=== PATIENT | female | born 1980 | race Caucasian/White ===

== ENCOUNTER 2018-02-24 12:51 | Emergency (ER) | payer OTHER ==
[~2018-02-24] VITALS: Ht 157.5 cm; Wt 81.6 kg
[~2018-02-24 12:51] MED LIST: CITA20TA9 PO
[2018-02-24 13:02] VITALS: BP 126/78
--- NOTE | 2018-02-24 13:12 | PHYS DOC ---
Past History Past Medical History: Anxiety, Depression Past Surgical History: No Surgical History Alcohol Use: Rarely Drug Use: None Adult General Chief Complaint Chief Complaint: LACERATION/AVULSION HPI HPI 37 showed female presents with left hand pain. The patient was opening a total yesterday with scissors from the scissors slipped and stabbed into the left palm. She immediately had bleeding. She washed off the wound and applied pressure. She was able to stop bleeding. She comes in today for further evaluation. There is no further bleeding. There is a small skin flap hanging off of the area. It is about a 0.5 cm laceration. She denies fever or chills. It is painful with palpation, Review of Systems Review of Systems Constitutional: Denies fever or chills [] Eyes: Denies change in visual acuity, redness, or eye pain [] HENT: Denies nasal congestion or sore throat [] Respiratory: Denies cough or shortness of breath [] Cardiovascular: No additional information not addressed in HPI [] GI: Denies abdominal pain, nausea, vomiting, bloody stools or diarrhea [] : Denies dysuria or hematuria [] Musculoskeletal: Hand laceration left hand[] Integument: Denies rash or skin lesions [] Neurologic: Denies headache, focal weakness or sensory changes [] Endocrine: Denies polyuria or polydipsia [] All other systems were reviewed and found to be within normal limits, except as documented in this note. Allergies Allergies Allergies Coded Allergies Type Severity Reaction Last Updated Verified No Known Drug Allergies 11/29/14 No Physical Exam Physical Exam Constitutional: Well developed, well nourished, no acute distress, non-toxic appearance. [] HENT: Normocephalic, atraumatic, bilateral external ears normal, oropharynx moist, no oral exudates, nose normal. [] Eyes: PERRLA, EOMI, conjunctiva normal, no discharge. [] Neck: Normal range of motion, no tenderness, supple, no stridor. [] Cardiovascular:Heart rate regular rhythm, no murmur [] Lungs & Thorax: Bilateral breath sounds clear to auscultation [] Abdomen: Bowel sounds normal, soft, no tenderness, no masses, no pulsatile masses. [] Skin: Warm, dry, no erythema, no rash. [] Back: No tenderness, no CVA tenderness. [] Extremities: No no cyanosis, no clubbing, ROM intact, no edema. Small, 0.5 cm laceration in the left thenar eminence. Bleeding is controlled.[] Neurologic: Alert and oriented X 3, normal motor function, normal sensory function, no focal deficits noted. [] Psychologic: Affect normal, judgement normal, mood normal. [] Current Patient Data Vital Signs Vital Signs Date Time Temp Pulse Resp B/P (MAP) Pulse Ox O2 Delivery O2 Flow Rate FiO2 02/24/18 13:02 98.1 69 18 98 Room Air EKG EKG [] Radiology/Procedures Radiology/Procedures [] Course & Med Decision Making Course & Med Decision Making Pertinent Labs and Imaging studies reviewed. (See chart for details) The laceration does not require stitches or a skin adhesive to close. It appears fairly shallow. Patient's tetanus is up-to-date. Advised that she keep it clean and covered, no further care. If she felt symptoms of infection she will return for further care. [] Dragon Disclaimer Dragon Disclaimer This electronic medical record was generated, in whole or in part, using a voice recognition dictation system. Departure Departure: Referrals: SHAYNA HOFFMAN MD (PCP) JOCELINE PHELPS DO February 24, 2018 13:12
== END 2018-02-24 13:20 | disposition home or self-care (01) ==
LOC: ER 12:51
DX: S61.412A Laceration without foreign body of left hand, initial encounter (principal); W26.8XXA Contact with other sharp object(s), not elsewhere classified, initial encounter; Y93.89 Activity, other specified; Y99.8 Other external cause status; Y92.89 Other specified places as the place of occurrence of the external cause
CPT/HCPCS: 99283

== ENCOUNTER 2018-06-18 06:52 | Emergency (ER) | payer OTHER ==
[~2018-06-18] VITALS: Ht 160 cm; Wt 81.6 kg
[2018-06-18] MEDS ORDERED: KETOROLAC 60 MG/2 ML VIAL. IM ONE (07:15)
[2018-06-18] MEDS ORDERED: AMOX1TAB61 PO (07:23)
[2018-06-18] MEDS ORDERED: IBUP800T19 PO (07:23)
--- NOTE | 2018-06-18 07:24 | PHYS DOC ---
Past History Past Medical History: Anxiety, Depression Past Surgical History: No Surgical History Smoking: Non-smoker Alcohol Use: Rarely Drug Use: None Adult General Chief Complaint Chief Complaint: EARACHE/EAR PAIN [facility] HPI Patient is a 38 year old female who presents with complaining of right ear. Patient states she has had history of seasonal allergy and taking Zyrtec and Sudafed. Patient states she woke up 3 AM because of right ear pain as a constant and pressure pain and rated her pain 7/10. Patient denies fever and chills, nausea and vomiting, sick contact, history of frequent ear infection. Patient denies . Review of Systems Review of Systems Constitutional: Denies fever or chills [] Eyes: Denies change in visual acuity, redness, or eye pain [] HENT: Reports nasal congestion and ear pain] Respiratory: Denies cough or shortness of breath [] Cardiovascular: No additional information not addressed in HPI [] GI: Denies abdominal pain, nausea, vomiting, bloody stools or diarrhea [] : Denies dysuria or hematuria [] Musculoskeletal: Denies back pain or joint pain [] Integument: Denies rash or skin lesions [] Neurologic: Denies headache, focal weakness or sensory changes [] Endocrine: Denies polyuria or polydipsia [] All other systems were reviewed and found to be within normal limits, except as documented in this note. Allergies Allergies Allergies Coded Allergies Type Severity Reaction Last Updated Verified No Known Drug Allergies 11/29/14 No Physical Exam Physical Exam Constitutional: Well developed, well nourished, mild distress, non-toxic appearance. [] HENT: Normocephalic, atraumatic, right tympanic membrane erythema and edema and tenderness without perforation, pharyngeal erythema, oropharynx moist, no oral exudates, nasal congestion bilaterally. Eyes: PERRLA, EOMI, conjunctiva normal, no discharge. [] Neck: Normal range of motion, no tenderness, supple, no stridor. [] Cardiovascular:Heart rate regular rhythm, no murmur [] Lungs & Thorax: Bilateral breath sounds clear to auscultation [] Neurologic: Alert and oriented X 3, normal motor function, normal sensory function, no focal deficits noted. [] Psychologic: Affect normal, judgement normal, mood normal. [] EKG EKG [] Radiology/Procedures Radiology/Procedures [] Course & Med Decision Making Course & Med Decision Making Evaluation of patient in ER showed 38-year-old female patient with history of seasonal allergy complaining of right ear pain since this morning. Patient had right tympanic membrane erythema and edema. Patient had 1 mL of Marcaine 0.5% flush in right ear and felt better. Plan discharge patient home with diagnose of right otitis media with prescription of Augmentin and ibuprofen and instruction to continue Zyrtec and Sudafed. Dragon Disclaimer Dragon Disclaimer This electronic medical record was generated, in whole or in part, using a voice recognition dictation system. Departure Departure: Impression: Primary Impression: Acute right otitis media Additional Impression: Seasonal allergies Disposition: HOME, SELF-CARE (@7:30) Condition: IMPROVED Referrals: SHAYNA HOFFMAN MD (PCP) Patient Instructions: Otitis Media, Adult Additional Instructions: Drink plenty of liquids Follow-up with your primary care physician in 3-5 days Return to ER if not getting better Scripts Ibuprofen (IBUPROFEN) 800 Mg Tablet 800 MG PO TID PRN for PAIN, #20 Prov: YINKA ARIZA MD 06/18/18 Amoxicillin/Potassium Clav (AUGMENTIN 875-125 TABLET) 1 Each Tablet 1 TAB PO BID, #20 TAB Prov: YINKA ARIZA MD 06/18/18 Problem Qualifiers YINKA ARIZA MD Jun 18, 2018 07:24
[2018-06-18 07:31] VITALS: BP 119/79
== END 2018-06-18 07:45 | disposition home or self-care (01) ==
LOC: ER 06:52
DX: H66.91 Otitis media, unspecified, right ear (principal); J30.2 Other seasonal allergic rhinitis; F41.9 Anxiety disorder, unspecified; F32.9 Major depressive disorder, single episode, unspecified
CPT/HCPCS: 96372; 99283; J1885

== ENCOUNTER → 2019-09-13 | Outpatient (CLI) | payer OTHER ==
[~2019-09-13] MED LIST changes: +AMOX1TAB61 PO; +IBUP800T19 PO
--- NOTE | 2019-09-13 15:09 | RAD ---
DATE: September 13, 2019 EXAM: DIGITAL DIAGNOSTIC BILATERAL, BREAST RIGHT SONOGRAPHY HISTORY: Right breast lump discovered by patient's physician COMPARISON: None-this is a baseline study. This study was interpreted with the benefit of Computerized Aided Detection (CAD). BILATERAL 2-D DIAGNOSTIC MAMMOGRAPHY: 2-D digital mammographic views of both breasts were performed in the CC and MLO projections. Additional focal 2-D compression views of the right breast were performed in the CC and 90 degrees projections in the area of the palpable lump as indicated by the patient. FINDINGS: Breast Density: HETERO The breast parenchyma is heterogenously dense, which could reduce sensitivity of mammography. Breast parenchyma level C.. There are no dominant suspicious masses, suspicious microcalcifications or evidence of architectural distortion. RIGHT BREAST SONOGRAPHY: High-resolution sonography of the palpable lump as indicated by the patient within the upper-outer quadrant of the right breast was performed. No focal sonographic abnormality is evident. IMPRESSION: No mammographic indicators for malignancy. No focal mammographic or sonographic abnormality is seen within the right breast to correspond to the area of palpable lump as indicated by the patient. BI-RADS CATEGORY: 1 NEGATIVE RECOMMENDED FOLLOW-UP: 12M 12 MONTH FOLLOW-UP PQRS compliance statement: Patient information was entered into a reminder system with a target due date September 14, 2020 for the next mammogram. Mammography is a sensitive method for finding small breast cancers, but it does not detect them all and is not a substitute for careful clinical examination. A negative mammogram does not negate a clinically suspicious finding and should not result in delay in biopsying a clinically suspicious abnormality. "Our facility is accredited by the [employer] Mammography [employer]." The patient's breast density may affect the ability of mammography to detect breast cancer. There are 4 categories of breast density, A, B, C and D. Breast density A means that most of the breast tissue is replaced with adipose tissue and therefore is not dense. Breast density B means that the breast tissue is mildly dense and scattered. Breast density C means that the breast tissue is heterogeneously dense. Breast density D means that the breast tissue is very dense. Breast densities especially C and D may decrease the sensitivity of mammography to detect breast cancer. Therefore, the patient may benefit from 3-D breast mammography (3D breast tomography) as a part of their screening mammogram. Insurance may or may not pay for this additional imaging. The patient's breast density based on today's mammogram is category C.
== END | disposition home or self-care (01) ==
LOC: MAMMO 13:58
PROVIDERS: ATTEND Nurse Practitioner Family
DX: N63.11 Unspecified lump in the right breast, upper outer quadrant (principal)
CPT/HCPCS: 76641; 77066

== ENCOUNTER → 2021-07-11 | Outpatient (CLI) | payer OTHER ==
--- NOTE | 2021-07-15 13:17 | RAD ---
Bilateral digital screening mammograms: Reason for examination: Routine screening. Comparison is made to previous study dated 09/13/2019. Bilateral mammograms in CC and oblique projections were obtained with 2-D imaging. Interpretation was made with the benefit of CAD. Findings: Breast density: Category D. The breasts are extremely dense which lowers sensitivity of mammography. There are no suspicious masses, malignant appearing calcifications or architectural distortion. Impression: No evidence of malignancy. ASSESSMENT: BI-RADS 1. Recommendations: Routine screening mammograms. In the future, 3-D mammography would be helpful in thi s patient with dense breasts. This patient's information has been entered into a reminder system for the patient to be notified wit h the results of her examination and a target date for the next mammogram. Your patient's mammogram demonstrates that she has dense breast tissue (breast density category C or D), which could hide abnormalities, and if she has other risk factors for breast cancer that have bee n identified, she might benefit from supplemental screening tests that may be suggested by you as her ordering physician. Dense breast tissue, in and of itself, is a relatively common condition. Therefo re, this information is not provided to cause undue concern, but rather to raise your awareness and t o promote discussion with your patient regarding the presence of other risk factors, in addition to d ense breast tissue. Electronically signed by: Padma Holguin MD (07/15/2021 1:15 PM) [id number]
== END ==
LOC: MAMMO 08:14
PROVIDERS: ATTEND Nurse Practitioner Family
DX: Z12.31 Encounter for screening mammogram for malignant neoplasm of breast (principal)
CPT/HCPCS: 77067